=== PATIENT | female | born 1945 | race Caucasian/White ===

== ENCOUNTER 2019-11-28 10:26 | Emergency (ER) | payer OTHER ==
[~2019-11-28] VITALS: Ht 157.5 cm; Wt 64.4 kg
[2019-11-28 10:45] VITALS: Ht 157.5 cm; Wt 64.4 kg
[2019-11-28 12:36] VITALS: BP 130/62
== END 2019-11-28 12:36 | disposition home or self-care (01) ==
LOC: ED 10:26
DX: N76.0 Acute vaginitis (principal); N39.0 Urinary tract infection, site not specified
CPT/HCPCS: J2001

== ENCOUNTER 2019-12-01 10:00 | Emergency (ER) | payer OTHER ==
[~2019-12-01] VITALS: Ht 160 cm; Wt 58.5 kg
[2019-12-01 10:56] VITALS: BP 146/67
== END 2019-12-01 10:56 | disposition home or self-care (01) ==
LOC: ED 10:00
DX: N76.4 Abscess of vulva (principal); Z48.01 Encounter for change or removal of surgical wound dressing

== ENCOUNTER 2020-03-22 22:12 | Emergency (ER) | payer OTHER ==
[~2020-03-22] VITALS: Ht 162.6 cm; Wt 60.8 kg
[2020-03-22 22:32] VITALS: BP 180/101; Ht 162.6 cm; Wt 60.8 kg
== END 2020-03-22 22:45 | disposition home or self-care (01) ==
LOC: ED 22:12
DX: M26.609 Unspecified temporomandibular joint disorder, unspecified side (principal); F03.90 Unspecified dementia, unspecified severity, without behavioral disturbance, psychotic disturbance, mood disturbance, and anxiety